=== PATIENT | male | born 1960 | race Caucasian/White ===

== ENCOUNTER 2017-11-28 00:12 | Emergency (ER) | payer SELFPAY ==
[~2017-11-28] VITALS: Ht 177.8 cm; Wt 75.0 kg
[2017-11-28 00:30] VITALS: BP 181/102; PULSE 80; RESP 16; TEMP 98.1; O2SAT 98
--- NOTE | 2017-11-28 00:33 | PD ---
HPI Chief Complaint: Alcohol/Drug Intoxication Time Seen by Provider: 00:25 Travel History International Travel<30 days: No Contact w/Intl Traveler<30days: No Traveled to known affect area: No History of Present Illness HPI 57-year-old male was brought in by EMS after a fall. Patient was intoxicated. Patient fell down this evening. Bystanders reported no loss of consciousness. EMS was called. Patient was brought in for evaluation. Patient has no complaint now. [facility] Past Medical History Medical History: Unable to Obtain Tetanus Vaccination: Unknown Past Surgical History Surgical History: Unable to Obtain Social History Alcohol Use: Yes Tobacco Use: No (UNABLE TO OBTAIN) Substance Use: No Allergies-Medications (Allergen,Severity, Reaction): Coded Allergies: Unable to Assess (Unverified Allergy, Unknown, 05/04/17) Reported Meds & Prescriptions Reported Meds & Active Scripts Active Active Prescriptions or Reported Medications Unobtainable Review of Systems General / Constitutional: No: Fever Eyes: No: Visual changes HENT: No: Headaches Cardiovascular: No: Chest Pain or Discomfort Respiratory: No: Shortness of Breath Gastrointestinal: No: Abdominal Pain Genitourinary: No: Dysuria Musculoskeletal: No: Pain Skin: No Rash Neurologic: No: Weakness Psychiatric: No: Depression Endocrine: No: Polydipsia Hematologic/Lymphatic: No: Easy Bruising Physical Exam Narrative GENERAL: Well-nourished, well-developed patient. SKIN: Focused skin assessment warm/dry. HEAD: Normocephalic. Patient has small abrasion on the right temporal area of the scalp. Soft tissue swelling noted. EYES: No scleral icterus. No injection or drainage. Pupils 3 mm equal reactive. Patient has fresh blood at the nares. No active bleeding. NECK: Supple, trachea midline. No JVD or lymphadenopathy. C-collar in place. CARDIOVASCULAR: Regular rate and rhythm without murmurs, gallops, or rubs. RESPIRATORY: Breath sounds equal bilaterally. No accessory muscle use. GASTROINTESTINAL: Abdomen soft, non-tender, nondistended. MUSCULOSKELETAL: No cyanosis, or edema. BACK: Nontender without obvious deformity. No CVA tenderness. Neurologic exam: Patient is intoxicated. Patient moves all extremity well. No obvious focal neurological deficit. Data Data Last Documented VS Vital Signs Date Time Temp Pulse Resp B/P (MAP) Pulse Ox O2 Delivery O2 Flow Rate FiO2 11/28/17 00:24 Room Air Orders Orders Complete Blood Count With Diff (11/28/17:25) Comprehensive Metabolic Panel (11/28/17:) Prothrombin Time / Inr (Pt) (11/28/17:) Act Partial Throm Time (Ptt) (11/28/17:) Iv Access Insert/Monitor (11/28/17:) Ecg Monitoring (11/28/17:) Oximetry (11/28/17) Alcohol (Ethanol) (11/28/17:) Ct Brain W/O Iv Contrast(Rout) (11/28/17:25) Ct Cerv Spine W/O Contrast (11/28/17:) Ct Facial Bones W/O Iv Cont (11/28/17:) MDM Medical Decision Making Medical Screen Exam Complete: Yes Emergency Medical Condition: Yes Differential Diagnosis Differential diagnosis including head injury, facial injury, neck injury, intoxication. Narrative Course 57-year-old male with head injury, facial injury, intoxicated. Scripts Unable to Obtain Active Prescriptions or Reported Meds El Waters MD Nov 28, 2017 00:33
--- NOTE | 2017-11-28 01:05 | RADRPT ---
EXAM DATE/TIME: 11/28/2017 00:43 [facility] COMPARISON: No previous studies available for comparison. INDICATIONS : Trauma; ETOH. RADIATION DOSE: 56.35 CTDIvol (mGy) MEDICAL HISTORY : None SURGICAL HISTORY : None. ENCOUNTER: Initial ACUITY: 1 day PAIN SCALE: Non-responsive LOCATION: cranial TECHNIQUE: Multiple contiguous axial images were obtained of the head. Using automated exposure control and adj ustment of the mA and/or kV according to patient size, radiation dose was kept as low as reasonably a chievable to obtain optimal diagnostic quality images. DICOM format image data is available electro nically for review and comparison. FINDINGS: CEREBRUM: The ventricles are normal for age. No evidence of midline shift, mass lesion, hemorrhage or acute in farction. No extra-axial fluid collections are seen. There is an apparent old white matter infarct o f the left frontal lobe measuring approximately 2.4 cm in size. POSTERIOR FOSSA: The cerebellum and brainstem are intact. The 4th ventricle is midline. The cerebellopontine angle i s unremarkable. EXTRACRANIAL: The visualized portion of the orbits is intact. SKULL: The calvaria is intact. No evidence of skull fracture. CONCLUSION: 1. No bleed or other acute intracranial abnormality. 2. 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 Julio Vaughan MD on November 28, 2017 at 1:03 Board Certified Radiologist. This report was verified electronically.
[2017-11-28 01:07] LABS: AUTOMATED NEUTROPHIL # 8.6 TH/MM3 (1.8-7.7); BASOPHIL % 0.1 % (0.0-2.0); EOSINOPHIL # 0.1 TH/MM3 (0-0.4); EOSINOPHIL % 0.6 % (0.0-4.0); HEMATOCRIT 41.7 % (39.0-51.0); HEMOGLOBIN 14.5 GM/DL (13.0-17.0); LYMPH % 27.3 % (9.0-44.0); LYMPHOCYTE # 3.7 TH/MM3 (1.0-4.8); MEAN CELL VOLUME 99.4 FL (80.0-100.0); MEAN CORPUSCULAR HEMOGLOBIN 34.7 PG (27.0-34.0); MEAN CORPUSCULAR HGB CONC 34.9 % (32.0-36.0); MEAN PLATELET VOLUME 7.3 FL (7.0-11.0); MONO % 7.6 % (0.0-8.0); NEUT % 64.4 % (16.0-70.0); PLATELET COUNT 304 TH/MM3 (150-450); RED BLOOD COUNT 4.19 MIL/MM3 (4.50-5.90); RED CELL DISTRIBUTION WIDTH 13.5 % (11.6-17.2); WHITE BLOOD COUNT 13.4 TH/MM3 (4.0-11.0)
--- NOTE | 2017-11-28 01:08 | RADRPT ---
EXAM DATE/TIME: 11/28/2017 00:43 [facility] COMPARISON: No previous studies available for comparison. INDICATIONS : Trauma; ETOH. RADIATION DOSE: 26.35 CTDIvol (mGy) MEDICAL HISTORY : None SURGICAL HISTORY : None. ENCOUNTER: Initial ACUITY: 1 day PAIN SCORE: Non-responsive LOCATION: facial TECHNIQUE: Volumetric scanning of the facial bones was performed. Using automated exposure control and adjustme nt of the mA and/or kV according to patient size, radiation dose was kept as low as reasonably achiev able to obtain optimal diagnostic quality images. DICOM format image data is available electronicall y for review and comparison. FINDINGS: There are old nasal and maxillary fractures. No acute facial fractures demonstrated. Orbits and globe s are intact. Patient is edentulous. Severe and diffuse mucoperiosteal thickening seen of the ethmoid and maxillary paranasal sinuses. CONCLUSION: 1. No acute facial fracture demonstrated. 2. There are old fractures of the nose and maxilla. 3. Chronic paranasal sinus disease. Julio Vaughan MD on November 28, 2017 at 1:03 Board Certified Radiologist. This report was verified electronically.
--- NOTE | 2017-11-28 01:12 | RADRPT ---
EXAM DATE/TIME: 11/28/2017 00:43 [facility] COMPARISON: No previous studies available for comparison. INDICATIONS : Trauma, fell and hit head. RADIATION DOSE: 25.85 CTDIvol (mGy) MEDICAL HISTORY : None SURGICAL HISTORY : None. ENCOUNTER: Initial ACUITY: 1 day PAIN SCALE: Non-responsive LOCATION: neck TECHNIQUE: Volumetric scanning of the cervical spine was performed. Multiplanar reconstructions in the sagittal, coronal and oblique axial planes were performed. Using automated exposure control and adjustment o f the mA and/or kV according to patient size, radiation dose was kept as low as reasonably achievable to obtain optimal diagnostic quality images. DICOM format image data is available electronically f or review and comparison. FINDINGS: VERTEBRAE: Normal vertebral body height. ALIGNMENT: No evidence of subluxation. Multilevel disc space narrowing with posterior disc osteophyte formation and bilateral uncovertebral and facet osteoarthritis seen, moderate at C3/C4 and moderate to severe at C4/C5, C5/C6 and C6/C7. Th ere is moderate right foraminal stenosis at C3/C4 and C4/C5. There is left foraminal stenosis, mild t o moderate at C3/C4 and C6/C7, moderate at C4/C5 and C5/C6. CONCLUSION: Intact cervical spine. Degenerative changes as above. Julio Vaughan MD on November 28, 2017 at 1:08 Board Certified Radiologist. This report was verified electronically.
[2017-11-28 01:20] LABS: PROTHROMBIN TIME - PATIENT 10.2 SEC (9.8-11.6)
[2017-11-28 01:24] LABS: ALBUMIN 3.4 GM/DL (3.4-5.0); AST (GOT) 69 U/L (15-37); BICARBONATE 25.8 MEQ/L (21.0-32.0); BLOOD UREA NITROGEN 2 MG/DL (7-18); CALCIUM 8.3 MG/DL (8.5-10.1); CHLORIDE 98 MEQ/L (98-107); CREATININE 0.65 MG/DL (0.60-1.30); GLOMERULAR FILTRATION RATE 126 ML/MIN (>89); GLUCOSE,RANDOM 100 MG/DL (74-106); SODIUM (NA) 134 MEQ/L (136-145)
[2017-11-28 01:29] LABS: ALKALINE PHOSPHATASE 140 U/L (45-117); ALT (GPT) 59 U/L (12-78); TOTAL BILIRUBIN ADULT 0.4 MG/DL (0.2-1.0); TOTAL PROTEIN 7.1 GM/DL (6.4-8.2)
--- NOTE | 2017-11-28 01:37 | PD ---
Data Data Last Documented VS Vital Signs Date Time Temp Pulse Resp B/P (MAP) Pulse Ox O2 Delivery O2 Flow Rate FiO2 11/28/17 00:30 98.1 80 16 181/102 (128) 98 11/28/17 00:24 Room Air Orders Orders Complete Blood Count With Diff (11/28/17 00:25) Comprehensive Metabolic Panel (11/28/17 00:25) Prothrombin Time / Inr (Pt) (11/28/17:25) Act Partial Throm Time (Ptt) (11/28/17:25) Iv Access Insert/Monitor (11/28/17:25) Ecg Monitoring (11/28/17:25) Oximetry (11/28/17:) Alcohol (Ethanol) (11/28/17:) Ct Brain W/O Iv Contrast(Rout) (11/28/17:25) Ct Cerv Spine W/O Contrast (11/28/17:25) Ct Facial Bones W/O Iv Cont (11/28/17:25) Labs Laboratory Tests Test 11/28/17 00:55 White Blood Count 13.4 TH/MM3 Red Blood Count 4.19 MIL/MM3 Hemoglobin 14.5 GM/DL Hematocrit 41.7 % Mean Corpuscular Volume 99.4 FL Mean Corpuscular Hemoglobin 34.7 PG Mean Corpuscular Hemoglobin Concent 34.9 % Red Cell Distribution Width 13.5 % Platelet Count 304 TH/MM3 Mean Platelet Volume 7.3 FL Neutrophils (%) (Auto) 64.4 % Lymphocytes (%) (Auto) 27.3 % Monocytes (%) (Auto) 7.6 % Eosinophils (%) (Auto) 0.6 % Basophils (%) (Auto) 0.1 % Neutrophils # (Auto) 8.6 TH/MM3 Lymphocytes # (Auto) 3.7 TH/MM3 Monocytes # (Auto) 1.0 TH/MM3 Eosinophils # (Auto) 0.1 TH/MM3 Basophils # (Auto) 0.0 TH/MM3 CBC Comment DIFF FINAL Differential Comment Prothrombin Time 10.2 SEC Prothromb Time International Ratio 1.0 RATIO Activated Partial Thromboplast Time 28.0 SEC Blood Urea Nitrogen 2 MG/DL Creatinine 0.65 MG/DL Random Glucose 100 MG/DL Total Protein 7.1 GM/DL Albumin 3.4 GM/DL Calcium Level 8.3 MG/DL Alkaline Phosphatase 140 U/L Aspartate Amino Transf (AST/SGOT) 69 U/L Alanine Aminotransferase (ALT/SGPT) 59 U/L Total Bilirubin 0.4 MG/DL Sodium Level 134 MEQ/L Potassium Level 3.5 MEQ/L Chloride Level 98 MEQ/L Carbon Dioxide Level 25.8 MEQ/L Anion Gap 10 MEQ/L Estimat Glomerular Filtration Rate 126 ML/MIN Ethyl Alcohol Level 344 MG/DL MDM Medical Record Reviewed: Yes Supervised Visit with JASWINDER: No Narrative Course I assumed care of this patient pending CT imaging. CT imaging is negative. The patient will remain here until he is sober and then he will be discharged. Diagnosis Primary Impression: Alcohol intoxication Scripts Unable to Obtain Active Prescriptions or Reported Meds Raymundo Aparicio Nov 28, 2017 01:37
== END 2017-11-28 08:26 | disposition home or self-care (01) ==
LOC: NEPD 00:12
DX: F10.920 Alcohol use, unspecified with intoxication, uncomplicated (principal); S00.01XA Abrasion of scalp, initial encounter; W19.XXXA Unspecified fall, initial encounter; Y90.8 Blood alcohol level of 240 mg/100 ml or more
CPT/HCPCS: 70450; 70486; 72125; 80053; 80307; 85025; 85610; 85730